=== PATIENT | female | born 1985 | race Caucasian/White ===

== ENCOUNTER 2017-04-26 17:25 | Outpatient (CLI) | payer OTHER ==
[~2017-04-26] VITALS: Ht 172.7 cm; Wt 105.0 kg
[~2017-04-26 17:25] MED LIST: DOCU-131 PO; IBUP-1222 PO; OXYC-302 PO
[2017-04-26 17:37] VITALS: BP 133/80
== END 2017-04-26 18:45 | disposition home or self-care (01) ==
LOC: LDOP 17:25
PROVIDERS: ATTEND Obstetrics & Gynecology
DX: O36.8130 Decreased fetal movements, third trimester, not applicable or unspecified (principal); Z3A.28 28 weeks gestation of pregnancy
CPT/HCPCS: 59025; 99211; G0463

== ENCOUNTER 2017-05-09 10:44 | Outpatient (CLI) | payer OTHER ==
[~2017-05-09] VITALS: Ht 172.7 cm; Wt 105.7 kg
[2017-05-09 10:47] VITALS: BP 134/78
[2017-05-09] MEDS ORDERED: PREN1TAB60 PO (11:01)
[2017-05-09 12:23] LABS: HEMATOCRIT 37.3 % (34.6-47.8); HEMOGLOBIN 12.9 g/dL (11.7-16.4); WHITE BLOOD COUNT 11.6 x10^3/uL (3.4-10)
[2017-05-09 12:31] LABS: BLOOD UREA NITROGEN 6 mg/dL (7-18)
[2017-05-09 12:36] LABS: ASPARTATE AMINO TRANSFERASE 10 U/L (15-37)
== END 2017-05-09 13:35 | disposition home or self-care (01) ==
LOC: LDOP 10:44
PROVIDERS: ATTEND Obstetrics & Gynecology
DX: O13.3 Gestational [pregnancy-induced] hypertension without significant proteinuria, third trimester (principal); Z3A.00 Weeks of gestation of pregnancy not specified
CPT/HCPCS: 36415; 59025; 80053; 81001; 81050; 82570; 84156; 84550; 85025; 99211; G0463

== ENCOUNTER 2019-07-25 14:55 | Inpatient (IN) | payer OTHER ==
[~2019-07-25] VITALS: Ht 172.7 cm; Wt 97.6 kg
[~2019-07-25 14:55] MED LIST changes: +PREN1TAB60 PO
[2019-07-25 15:39] LABS: BASOPHILS # (AUTO) 0.01 x10^3/uL (0-0.1); BASOPHILS % (AUTO) 0 % (0-1); EOSINOPHILS # (AUTO) 0.01 x10^3/uL (0-0.4); EOSINOPHILS % (AUTO) 0 % (1-7); LYMPHOCYTES # (AUTO) 0.75 x10^3/uL (1-3.4); LYMPHOCYTES % (AUTO) 5 % (22-44); MD NO; MEAN CORPUSCULAR HEMOGLOBIN 31.1 pg (27.0-34.8); MEAN CORPUSCULAR VOLUME 91.6 fL (80-100); MEAN PLATELET VOLUME 7.2 fL (7.4-10.4); MONOCYTES # (AUTO) 0.36 x10^3/uL (0.2-0.8); MONOCYTES % (AUTO) 2 % (2-9); NEUTROPHILS # (AUTO) 13.91 x10^3/uL (1.8-6.8); NEUTROPHILS % (AUTO) 93 % (42-75); PLATELET COUNT 266 x10^3/uL (130-400); RED BLOOD COUNT 4.77 x10^6/uL (3.82-5.3); RED CELL DISTRIBUTION WIDTH 12.8 % (9.6-15.2)
[2019-07-25 15:52] LABS: ALANINE AMINOTRANSFERASE 23 U/L (12-78); ALBUMIN 4.4 g/dL (3.4-5.0); ANION GAP 7 mmol/L (5-15); CALCIUM 8.8 mg/dL (8.5-10.1); CHLORIDE 108 mmol/L (98-107); CREATININE 1.16 mg/dL (0.55-1.02)
[2019-07-25 15:55] LABS: MICROSCOPIC INDICATED
[2019-07-25 15:57] LABS: ALKALINE PHOSPHATASE 46 U/L (45-117); TOTAL PROTEIN 8.1 g/dL (6.4-8.2)
[2019-07-25 16:05] LABS: CULTURE INDICATED? YES
--- NOTE | 2019-07-25 16:15 | NUR ---
PT RESTING IN [facility], AWAITING LAB AND RAD RESULTS. PT ON MONITOR, CALL LIGHT WITHIN REACH.
--- NOTE | 2019-07-25 17:02 | NUR ---
ADDITIONAL IMAGING ORDERED. PT RESTING IN [place], NO NEEDS AT THIS TIME.
--- NOTE | 2019-07-25 17:04 | NUR ---
PT TO CT
--- NOTE | 2019-07-25 17:16 | NUR ---
PT RETURNED FROM CT, PLACED BACK ON MONITOR
--- NOTE | 2019-07-25 17:57 | NUR ---
XRAY AT BEDSIDE.
--- NOTE | 2019-07-25 17:59 | NUR ---
PT INFORMED SHE NEEDS TO REMAIN NPO, PT HAS NOT HAD ANY FOOD OR DRINK SINCE LAST NIGHT 07/24 2100.
[2019-07-25] MEDS ORDERED: SODIUM CHLORIDE 0.9% 1,000 ML IV ONE (18:12)
[2019-07-25] MEDS ORDERED: SODIUM CHLORIDE FLUSH 10ML SYR IVF PRN (18:30)
[2019-07-25] MEDS ORDERED: ONDANSETRON 2MG/ML, 2ML IVPush PRN ×2 (18:30→19:30)
[2019-07-25] MEDS ORDERED: HYDROmorphone 1 MG/ML, 1ML INJ IVPush PRN (18:30)
--- NOTE | 2019-07-25 18:32 | NUR ---
REPORT TO OSMAN RN, PT TO GO TO OR AT 2000
[2019-07-25 18:42] VITALS: BP 120/62
--- NOTE | 2019-07-25 18:43 | NUR ---
IV ESTABLISHED AND IVF STARTED. PT DECLINING ZOFRAN AND PAIN MEDICATION AT THIS TIME
--- NOTE | 2019-07-25 18:50 | NUR ---
REPORT TO RAKAN GALLO
[2019-07-25] MEDS ORDERED: SODIUM CHLORIDE 0.9% 1,000 ML IV SCH (19:23)
[2019-07-25] MEDS ORDERED: MIDAZOLAM 1 MG/ML, 2ML ONE (19:28)
[2019-07-25] MEDS ORDERED: FENTANYL PF 100 MCG/2ML ONE ×2 (19:28→20:36)
[2019-07-25] MEDS ORDERED: ACETAMINOPHEN 325 MG TABLET PO PRN ×3 (19:30→22:30)
[2019-07-25] MEDS ORDERED: DOCUSATE 100 MG CAPSULE PO PRN (19:30)
[2019-07-25] MEDS ORDERED: HYDROcodone/APAP 5/325 TABLET PO PRN ×2 (19:30→22:30)
[2019-07-25] MEDS ORDERED: TEMAZEPAM 15 MG CAPSULE PO PRN (19:30)
[2019-07-25] MEDS ORDERED: LIDOCAINE-MPF 2% ,5ML ONE (20:35)
[2019-07-25] MEDS ORDERED: CEFAZOLIN 1,000 MG ONE (20:35)
[2019-07-25] MEDS ORDERED: DEXAMETHASONE 4 MG/ML, 1ML ONE (20:35)
[2019-07-25] MEDS ORDERED: ONDANSETRON 2MG/ML, 2ML ONE (20:35)
[2019-07-25] MEDS ORDERED: PROPOFOL 10 MG/ML, 20ML ONE (20:35)
[2019-07-25] MEDS ORDERED: LABETALOL 5MG/ML, 20ML IV PRN (21:00)
[2019-07-25] MEDS ORDERED: FENTANYL PF 100 MCG/2ML IV PRN (21:00)
[2019-07-25] MEDS ORDERED: MIDAZOLAM 1 MG/ML, 2ML IV PRN (21:00)
[2019-07-25] MEDS ORDERED: OXYcodone 5 MG/5 ML ORAL.SOL UDC PO PRN (21:00)
[2019-07-25] MEDS ORDERED: PROMETHAZINE 25 MG/ML, 1ML IV PRN (21:00)
[2019-07-25] MEDS ORDERED: hydrALAzine 20 MG/ML, 1ML IV PRN (21:00)
[2019-07-25] MEDS ORDERED: ALBUTEROL/IPRATROPIUM 2.5MG/0.5MG, 3 ML NPPB PRN (21:00)
[2019-07-25] MEDS ORDERED: MEPERIDINE/PF 25MG/ML,1ML IVPush PRN (21:00)
[2019-07-25] MEDS ORDERED: SCOPOLAMINE PATCH, 1.5MG PATCH.TD72 TD PRN (21:00)
[2019-07-25] MEDS ORDERED: HYDROmorphone 2 MG/ML, 1ML IVPush PRN (21:00)
[2019-07-25] MEDS ORDERED: MORPHINE SULFATE 4 MG/ML, 1ML IV PRN (23:00)
[2019-07-25] MEDS ORDERED: LACTATED RINGERS 1,000 ML IV SCH (23:00)
== END 2019-07-25 23:45 | disposition home or self-care (01) | DRG 670 ==
LOC: ED 17:04 → EDIP 19:01 → 4NE 19:13
PROVIDERS: ADMIT Internal Medicine; ATTEND Internal Medicine
PROC: 0TC78ZZ Extirpation of Matter from Left Ureter, Via Natural or Artificial Opening Endoscopic (ICD-10-PCS; principal; 2019-07-25 20:00)
DX: N13.2 Hydronephrosis with renal and ureteral calculous obstruction (principal); N17.9 Acute kidney failure, unspecified; Z88.6 Allergy status to analgesic agent; D72.829 Elevated white blood cell count, unspecified; Z97.5 Presence of (intrauterine) contraceptive device
CPT/HCPCS: 36415; 74018; 76000; J3490; 74176; 76830; 80053; 81001; 83690; 84703; 85025; 87086; G0378; J0690; J1100; J2250; J2405; J2704; J3010; J7030